=== PATIENT | female | born 1965 | race Hispanic/Latino ===

== ENCOUNTER 2019-01-05 09:19 | Outpatient (CLI) | payer BC ==
--- NOTE | 2019-01-05 12:04 | BD ---
DEXA BONE DENSITY STUDY: Date: 01/05/19 HISTORY: 53-year-old postmenopausal female for screening. FINDINGS: Lumbar Spine: BMD (g/cm2) L1 1.010 T-Score: 0.2 L2 1.106 T-Score: 0.7 L3 1.049 T-Score: -0.3 L4 1.005 T-Score: -0.5 L1-L4 1.041 T-Score: -0.1 Left Femoral Neck: 0.877 T-Score: 0.3 Total Femur: 1.030 T-Score: 0.8 IMPRESSION: Normal bone mineral density. POS: ALEJANDRO
--- NOTE | 2019-01-20 06:44 | MMO ---
Bilateral MAMMO Bilat Screen [facility]. CLINICAL HISTORY: Patient is 53 years old and is seen for screening. The patient has no family history of breast cancer. The patient has no personal history of cancer. VIEWS: The views performed were: bilateral craniocaudal with tomosynthesis and bilateral mediolateral oblique with tomosynthesis. FILMS COMPARED: The present examination has been compared to prior imaging studies performed at [facility] on 11/24/2013, 11/19/2014, 11/24/2015 and 04/24/2017. MAMMOGRAM FINDINGS: There are scattered fibroglandular densities. There is a stable equal density, oval mass seen in the sub-areolar region of the right breast. There are no suspicious masses, suspicious calcifications, or new areas of architectural distortion. IMPRESSION: THERE IS NO MAMMOGRAPHIC EVIDENCE OF MALIGNANCY. A ROUTINE FOLLOW-UP MAMMOGRAM IN 1 YEAR IS RECOMMENDED. THE RESULTS OF THIS EXAM WERE SENT TO THE PATIENT. ACR BI-RADS Category 2 - Benign finding MAMMOGRAPHY NOTE: 1. A negative mammogram report should not delay a biopsy if a dominant of clinically suspicious mass is present. 2. Approximately 10% to 15% of breast cancers are not detected by mammography. 3. Adenosis and dense breasts may obscure an underlying neoplasm. Reported by: KALPESH HANSEN MD Electonically Signed: [id number]
== END 2019-01-05 09:20 | disposition home or self-care (01) ==
LOC: BICMAMMO 09:19
PROVIDERS: ATTEND Specialist
DX: Z12.31 Encounter for screening mammogram for malignant neoplasm of breast (principal); Z13.820 Encounter for screening for osteoporosis
CPT/HCPCS: 77063; 77067; 77080

== ENCOUNTER 2021-04-20 08:08 | Outpatient (CLI) | payer BC | END 2021-04-20 08:09 | disposition home or self-care (01) | LOC: BICMAMMO 08:08 | PROVIDERS: ATTEND Specialist | DX: Z12.31 Encounter for screening mammogram for malignant neoplasm of breast (principal) | CPT/HCPCS: 77063; 77067 ==

== ENCOUNTER 2021-10-04 12:15 | Outpatient (CLI) | payer BC | END 2021-10-04 12:16 | disposition home or self-care (01) | LOC: BICRAD 12:15 | PROVIDERS: ATTEND Specialist | DX: M23.92 Unspecified internal derangement of left knee (principal); M11.262 Other chondrocalcinosis, left knee ==

== ENCOUNTER 2021-10-12 12:39 | Outpatient (CLI) | payer BC | END 2021-10-12 12:40 | disposition home or self-care (01) | LOC: SCSMRI 12:39 | PROVIDERS: ATTEND Specialist | DX: M23.92 Unspecified internal derangement of left knee (principal); M25.462 Effusion, left knee ==